=== PATIENT | female | born 1955 | race Caucasian/White ===

== ENCOUNTER 2017-10-04 13:20 | Emergency (ER) | payer BC, OTHER ==
[~2017-10-04] VITALS: Ht 165.1 cm; Wt 83.0 kg
[~2017-10-04 13:20] MED LIST: AMLODIPINE/BENA1 CAP PO; ASPIR-LOW81 MG PO; BIAXIN500 MG PO; BYSTOLIC5 MG PO; CALCIUM600 M1 PO; CITALOPRAM HYDR20 MG PO; CLARITIN10 MG PO; COLESTIPOL1 GM PO; D3PLUS1 CAP; D3PLUS1 CAP PO; DETROL LA4 MG PO; DIAZEPAM5 M1 PO; DULOXETINE60 MG PO; ESOMEPRAZOLE MA40 M1 PO; GARLIC OIL1000 MG PO; KEFLEX 500MG.500 MG PO; LOMOTIL 2.5MG.2.5 MG PO; LORTAB 5/500 501 TAB PO; LYRICA75 MG PO; MECLIZINE HYDRO25 M2 PO; MEDROL 4MG. DOSE4 MG PO; NEXIUM40 MG PO; ONE DAILY WOMEN1 TAB PO; PHENERGAN 25MG.25 M1 PO; POTASSIUM CHLO20 ME4 PO; PREMARIN0.625 MG PO; PREMPRO 0.625 M1 TA1 PO; ULTRAM50 MG PO; VITAMIN C250 M1 PO; VITAMIN E100 I2 PO; ZOFRAN ODT4 MG PO
--- OUTSIDE RECORDS SUMMARY | 2017-10-04 13:25 | External Medical Summary Rpt | CCD ---
Author Author , GRETCHEN GODINEZ Address Unknown Phone [email or web address] Purpose Continuity of Care Document - 03-19-2017 through 2016 Problems Code Diagnosis DOS Provider Status Z12.31 ENCOUNTER 03-19-2017 FOR SCREENING MAMMOGRAM FOR MALIGNANT NEOPLASM OF BREAST Z13.820 ENCOUNTER 03-19-2017 FOR SCREENING FOR OSTEOPOROSI S Results Labs Lab Lab Date Result Refere Interp Status Commen Order Detail nces retati t Range on Differential panel, method unspecified - (09-13-2017 18:10) Blood = 100 complet total 017 #CELLS ed cell 18:10 count Neutrop = 80 % 42-76 complet hil 017 ed count 18:10 Blood SL. SL. complet poikilo 017 L ed cytosis 18:10 detecti on by light Platele NORMAL complet t 017 NORMAL ed estimat 18:10 L e Monocyt = 1 % 2-9 complet e % 017 ed 18:10 LYMPH 6 % 10-50 complet 017 ed 18:10 Hypochr 1+ 1+ L complet omatic 017 ed red 18:10 blood cell detecti on Automat = 13 % 0-8 complet ed 017 ed blood 18:10 band neutrop hil percent a CBC w auto diff (09-13-2017 18:10) Blood = 6.7 4.8-10. complet leukocy 017 K/MM3 8 ed luis 18:10 count (number /volume ) Automat = 16.1 11.5-17 complet ed 017 % .5 ed erythro 18:10 cyte distrib ution width Red = 4.31 4.2-5.4 complet blood 017 M/mm3 ed cell 18:10 count Blood = 284 142-424 complet platele 017 K/mm3 ed t count 18:10 Automat = 7.1 7.4-10. complet ed 017 fl 4 ed blood 18:10 platele t mean volume yovani Adams % = 2.7 % 1.7-9.3 complet 017 ed 18:10 Absolut = 0.2 0.1-1.0 complet e 017 K/mm3 ed monocyt 18:10 e count Automat = 81.9 82.2-97 complet ed 017 fl .8 ed erythro 18:10 cyte mean corpusc ular v Automat = 31.3 31.8-35 complet ed 017 g/dl .4 ed erythro 18:10 cyte mean corpusc ular h Mean = 25.6 27-31.2 complet corpusc 017 pg ed ular 18:10 hemoglo bin (MCH) determ Lymphoc = 6.9 % 10-50.0 complet yte 017 ed count, 18:10 blood, automat ed Absolut = 0.5 0.7-4.5 complet e 017 K/mm3 ed lymphoc 18:10 yte count Blood = 11.0 12.2-16 complet hemoglo 017 g/dL .2 ed bin 18:10 measure ment (mass/v olum Blood = 35.3 37.0-47 complet hematoc 017 % .0 ed rit 18:10 (volume fractio n) Granulo = 90.0 37.0-80 complet cyte 017 % .0 ed percent 18:10 age Blood = 6.0 1.8-7.8 complet granulo 017 K/mm3 ed cytes 18:10 automat ed count (numb Automat = 0.4 % 0.1-12. complet ed 017 0 ed blood 18:10 eosinop hils/10 0 leukocy t Automat = 0.0 0.0-0.4 complet ed 017 K/mm3 ed blood 18:10 eosinop hil count Baso % = 0.0 % 0.1-2.0 complet 017 ed 18:10 Automat = 0.0 0-0.2 complet ed 017 K/MM3 ed blood 18:10 basophi l count (count/ vo Comprehensive metabolic panel (09-13-2017 18:10) Protein = 8.5 6.4-8.2 complet total 017 gm/dL ed ser/jose 18:10 s ALT = 68 12-78 complet (SGPT) 017 U/L ed ser/jose 18:10 s Serum = 139 15-37 complet or 017 U/L ed plasma 18:10 asparta te aminotr ansfera Serum = 135 136-145 complet sodium 017 mmoL/L ed measure 18:10 ment Serum = 2.9 3.5-5.1 complet potassi 017 mmoL/L ed um 18:10 measure ment Comment: CRITICAL RESULTS Comment: RESULTS CALLED TO: Tirso GERONIMO APRM 09/13/17 1839 ShadiDick Serum = 258 74-106 complet or 017 mg/dL ed plasma 18:10 glucose measure ment (mas Serum = 5.0 1.3-3.2 complet globuli 017 gm/dL ed n 18:10 measure ment (mass/v olume) Estimat = 57 59- complet ed 017 ML/MIN ed glomeru 18:10 lar filtrat ion rate (GF Comment: REFERENCE RANGE: >60 ML/MIN/1.73 SQUARE METERS Comment: If this patient is -Egyptian, then multiply the Comment: result by 1.210. Estimat = 79 50-200 complet ion of 017 ML/MIN ed creatin 18:10 ine renal clearan ce Serum = 1.0 0.55-1. complet or 017 mg/dL 02 ed plasma 18:10 creatin ine measure ment ( Carbon = 19 21.0-32 complet dioxide 017 mmoL/L .0 ed 18:10 measure ment Serum = 95 98-107 complet or 017 mmoL/L ed plasma 18:10 chlorid e measure ment (mo Serum 10-29-2 = 8.1 8.5-10. complet or 017 mg/dL 1 ed plasma 18:10 calcium measure ment (mas Serum = 9 7-18 complet or 017 mg/dL ed plasma 18:10 urea nitroge n measure men Serum = 0.6 0.2-1.0 complet or 017 mg/dL ed plasma 18:10 total bilirub in measure m Serum = 120 46-116 complet or 017 U/L ed plasma 18:10 alkalin e phospha tase yovani Serum = 3.5 3.4-5.0 complet or 017 gm/dL ed plasma 18:10 albumin measure ment (mas Serum = 0.7 1.1-1.8 complet or 017 ed plasma 18:10 albumin /globul in mass ra Differential panel, method unspecified - (09-13-2017 18:10) Hypochr 1+ complet omia 017 ed [Presen 18:10 ce] in Blood LYMPH 6 % 10% - Low complet 017 50% ed 18:10 Platele NORMAL complet ts 017 ed [Presen 18:10 ce] in Blood by Light microsc opy Poikilo SL. complet cytosis 017 ed 18:10 [Presen ce] in Blood by Light microsc opy
--- OUTSIDE RECORDS SUMMARY | 2017-10-04 13:25 | External Medical Summary Rpt | CCD ---
Author Author , GRETCHEN GODINEZ Address Unknown Phone Purpose Continuity of Care Document - 03-19-2017 [...] blood 18:10 platele t mean volume yovani [place] % = 2.7 % 1.7-9.3 complet 017 [...] SQUARE METERS Comment: If this patient is -South African, then multiply the Comment: result by 1.210. [...]
--- OUTSIDE RECORDS SUMMARY | 2017-10-04 13:26 | External Medical Summary Rpt | CCD ---
Demographics Preferred Language Occitan Marital Status Unknown Zoroastrianism Affiliation Unknown Race Unknown Ethnic Group Unknown Author Author , GRETCHEN GODINEZ Address Unknown Phone Immunization No patient found.
--- OUTSIDE RECORDS SUMMARY | 2017-10-04 13:26 | External Medical Summary Rpt ---
Author Author [employer], [employer] Organization [employer] Address Unknown Phone Unavailable Results CBC W Auto Differential panel in Blood Observa Value Referen Units Interpr Notes Date tion ce etation Range Basophils 0 - 0.2 K/MM3 Normal No Sep 13 informati 2017 6:10 [#/volume on in PM ] in source Blood by data Automated count Basophils 0.1 - 2.0 % Low No Sep 13 /100 informati 2017 6:10 leukocyte on in PM s in source Blood by data Automated count Eosinophi 0.0 - 0.4 K/mm3 Normal No Sep 13 ls informati 2017 6:10 [#/volume on in PM ] in source Blood by data Automated count Eosinophi 0.1 - % Normal No Sep 13 ls/100 12.0 informati 2017 6:10 leukocyte on in PM s in source Blood by data Automated count Granulocy 1.8 - 7.8 K/mm3 Normal No Sep 13 luis informati 2017 6:10 [#/volume on in PM ] in source Blood by data Automated count Granulocy 37.0 - % High No Sep 13 luis/100 80.0 informati 2017 6:10 leukocyte on in PM s in source Blood by data Automated count Hematocri 37.0 - % Low No Sep 13 t [Volume 47.0 informati 2017 6:10 on in PM Fraction] source of Blood data Hemoglobi 12.2 - g/dL Low No Sep 13 n 16.2 informati 2017 6:10 [Mass/vol on in PM ume] in source Blood data Lymphocyt 0.7 - 4.5 K/mm3 Low No Sep 13 es informati 2017 6:10 [#/volume on in PM ] in source Unspecifi data ed specimen by Automated count Lymphocyt 10 - 50.0 % Low No Sep 13 es informati 2017 6:10 [#/volume on in PM ] in source Unspecifi data ed specimen by Automated count Erythrocy 27 - 31.2 pg Low No Oct 29 te mean informati 2017 6:10 corpuscul on in PM ar source hemoglobi data n [Entitic mass] Erythrocy 31.8 - g/dl Low No Sep 13 te mean 35.4 informati 2017 6:10 corpuscul on in PM ar source hemoglobi data n concentra tion [Mass/vol ume] by Automated count Erythrocy 82.2 - fl Low No Sep 13 te mean 97.8 informati 2017 6:10 corpuscul on in PM ar volume source [Entitic data volume] by Automated count Monocytes 0.1 - 1.0 K/mm3 Normal No Sep 13 informati 2016 6:10 [#/volume on in PM ] in source Blood by data Automated count Monocytes 1.7 - 9.3 % Normal No Sep 13 informati 2017 6:10 leukocyte on in PM s in source Blood by data Automated count Platelet 7.4 - fl Low No Sep 13 mean 10.4 informati 2017 6:10 volume on in PM [Entitic source volume] data in Blood by Automated count Platelets 142 - 424 K/mm3 No No Sep 13 informati informati 2017 6:10 [#/volume on in on in PM ] in source source Blood data data Erythrocy 4.2 - 5.4 M/mm3 Normal No Sep 13 luis informati 2017 6:10 [#/volume on in PM ] in source Amniotic data fluid Erythrocy 11.5 - % Normal No Sep 13 te 17.5 informati 2017 6:10 distribut on in PM ion width source [Entitic data volume] by Automated count Leukocyte 4.8 - K/MM3 Normal No Sep 13 s 10.8 informati 2016 6:10 [#/volume on in PM ] in source Blood data Differential panel, method unspecified - Observa Value Referen Units Interpr Notes Date tion ce etation Range Neutrophi 0 - 8 % High No Sep 13 ls.band informati 2017 6:10 form/100 on in PM leukocyte source s in data Blood by Automated count Hypochr 1+ No No No No Sep 13 omia informa informa informa informa 2016 [Presen tion in tion in tion in tion in 6:10 PM ce] in source source source source Blood data data data data LYMPH 6 10 - 50 % Low No Sep 13 informa 2017 tion in 6:10 PM source data Monocytes 2 - 9 % Low No Oct 29 /100 informati 2017 6:10 leukocyte on in PM s in source Blood by data Automated count Platele NORMAL No No No No Sep 13 ts informa informa informa informa 2016 [Presen tion in tion in tion in tion in 6:10 PM ce] in source source source source Blood data data data data by Light microsc opy Poikilo SL. No No No No Sep 13 cytosis informa informa informa informa 2016 tion in tion in tion in tion in 6:10 PM [Presen source source source source ce] in data data data data Blood by Light microsc opy Neutrophi 42 - 76 % High No Sep 13 ls informati 2017 6:10 [#/volume on in PM ] in source Blood by data Automated count Cells No #CELLS No No Sep 13 Counted informati informati informati 2017 6:10 Total [#] on in on in on in PM in Blood source source source data data data Comprehensive metabolic 2000 panel in Serum or Plasma Observa Value Referen Units Interpr Notes Date tion ce etation Range Albumin/G 1.1 - 1.8 No Low No Sep 13 lobulin informati informati 2017 6:10 [Mass on in on in PM ratio] in source source Serum or data data Plasma Albumin 3.4 - 5.0 gm/dL Normal No Sep 13 [Mass/vol informati 2017 6:10 ume] in on in PM Serum or source Plasma data Alkaline 46 - 116 U/L High No Sep 13 phosphata informati 2017 6:10 se on in PM [Enzymati source c data activity/ volume] in Serum or Plasma Bilirubin 0.2 - 1.0 mg/dL Normal No Sep 13 .total informati 2017 6:10 [Mass/vol on in PM ume] in source Serum or data Plasma Urea 7 - 18 mg/dL Normal No Sep 13 nitrogen informati 2017 6:10 [Mass/vol on in PM ume] in source Serum or data Plasma Calcium 8.5 - mg/dL Low No Sep 13 [Mass/vol 10.1 informati 2017 6:10 ume] in on in PM Serum or source Plasma data Chloride 98 - 107 mmoL/L Low No Sep 13 [Moles/vo informati 2017 6:10 lume] in on in PM Serum or source Plasma data Carbon 21.0 - mmoL/L Low No Sep 13 dioxide, 32.0 informati 2017 6:10 total on in PM [Moles/vo source lume] in data Serum or Plasma Creatinin 0.55 - mg/dL Normal No Sep 13 e 1.02 informati 2017 6:10 [Mass/vol on in PM ume] in source Serum or data Plasma Creatinin 50 - 200 ML/MIN Normal No Sep 13 e renal informati 2017 6:10 clearance on in PM source predicted data by Cockcroft -Gault formula Estimated 59- ML/MIN Low REFERENCE Oct 29 RANGE: 2017 6:10 glomerula >60 PM r ML/MIN/1. filtratio 73 SQUARE n rate METERSIf (GF this patient is -A merican, then multiply theresult by 1.210. Globulin 1.3 - 3.2 gm/dL High No Sep 13 [Mass/vol informati 2016 6:10 ume] in on in PM Serum source data Glucose 74 - 106 mg/dL High No Sep 13 [Mass/vol informati 2016 6:10 ume] in on in PM Serum or source Plasma data Potassium 3.5 - 5.1 mmoL/L Low alert Sep 13 2017 6:10 [Moles/vo CRITICAL PM lume] in RESULTS Serum or Plasma RESU LTS CALLED TO: Tirso GERONIMO APRM 09/13/17 1839 Rabia Hsu Sodium 136 - 145 mmoL/L Low No Sep 13 [Moles/vo informati 2017 6:10 lume] in on in PM Serum or source Plasma data Aspartate 15 - 37 U/L High No Sep 13 informati 2017 6:10 aminotran on in PM sferase source [Enzymati data c activity/ volume] in Serum or Plasma Alanine 12 - 78 U/L Normal No Sep 13 aminotran informati 2017 6:10 sferase on in PM [Enzymati source c data activity/ volume] in Serum or Plasma Protein 6.4 - 8.2 gm/dL High No Sep 13 [Mass/vol informati 2017 6:10 ume] in on in PM Serum or source Plasma data
--- OUTSIDE RECORDS SUMMARY | 2017-10-04 13:26 | External Medical Summary Rpt | CCD ---
Demographics Preferred Language Spanish Marital Status Unknown Lutheran Affiliation Unknown Race Unknown Ethnic Group Unknown Author Author , GRETCHEN GODINEZ Address Unknown Phone Immunization No patient found.
--- NOTE | 2017-10-04 13:45 | Urgent Treatment Center Report ---
History of Present Issue Date/Time Seen by Provider 10/04/17 2357 Visit Reason Pt arrived:Walked Presenting Problem:PT C/O OF RT SHOULDER PAIN SINCE THIS MORNING Location if Accident: Onset of symptoms date/time:10/04/17 or onset unknown for: Have you (or family members/close friends) recently traveled outside the [place]? N If Yes, where/when: Have you had exposure to infectious disease within the past month? TB? Other? Specify: Patient state that she has had prior shoulder injury to right shoulder. State that she slept on it wrong last night and when she got up and moved her arm she felt something "pop" state that she has had previous rotator cuff injury to the shoulder also States that she feels like she is having muscle spasm like pain in her right shoulder ALLERGIES Coded Allergies: acetaminophen (From Percocet) (Mild, 04/03/16) ibuprofen (Mild, 04/03/16) oxycodone (From Percocet) (Mild, 04/03/16) Coconut (STOMACH CRAMPING 04/03/16) Home Medications Active Scripts Ondansetron (Zofran 4MG Odt) 4 MG PO Q6HP PRN NAUSEA AND VOMITING #10 ODT Prov: 09/13/17 Potassium Chloride 20 MEQ PO DAILY #5 TAB Prov: 09/13/17 Reported Medications Colestipol Hydrochloride (Colestipol 1GM) 10 MG PO BID Multivitamin And Minerals (One Daily Women's) 1 TAB PO DAILY Ascorbic Acid (Vitamin C) 250 MG PO QHS Vitamin E 100 IU PO QHS Garlic (Garlic Oil) 1,000 MG PO QHS CALCIUM CARBONATE (Calcium) 600 MG PO QHS B Cit/Cholecalciferol/Menate (D3plus) 1 CAP PO QHS Esomeprazole Magnesium (Nexium 40MG Cap) 40 MG PO DAILY Pregabalin (Lyrica 75MG) 75 MG PO BID AMLODIPINE BESYLATE/BENAZEPRIL (Amlodipine-Benazepril 5-10 MG) 1 CAP PO DAILY NEBIVOLOL HCL (Bystolic) 10 MG PO DAILY ESTROGEN,CON/M-PROGEST ACET (Prempro 0.625-5 MG Tablet) 1 TAB PO DAILY Citalopram Hydrobromide (Citalopram HBr) 20 MG PO DAILY #30 DULOXETINE HCL (Duloxetine) 60 MG PO DAILY #30 Aspirin (Aspir-Low) 81 MG PO DAILY History Medical History General CAD? No Angina: No NE: No Hypertension? Yes Hyperlipidemia? No CHF? No DVT? No PE? No COPD? No Asthma? No Anemia? No GERD? Yes Gastric ulcers? No GI Bleed? No Hernia? No Thyroid Problems? No Hypothyroidism? No CVA? No Seizures? No Diabetes? No Renal Insuffiency? No UTI? No Stones? No BPH? No GB Disease: No Nephritic Syndrome? No Asplenia? No Hepatitis? No Sickle Cell Disease? No Arthritis? Yes Migraines? Yes Cataracts? Yes Glaucoma? No MRSA? No HIV? No TB? No Anxiety? No Depression? No Cancer? No More? No Immunization HX DT/Tetanus 5-10 YRS Flu NEVER Pneumonia NEVER Surgical Hx Previous Surgery?Y LT CATARACT/YAG/LENS IM- PLANT D & C HYSTERECTOMY NASAL SURGERY X4 DEVIATED NASAL SEPTUM RT KNEE ARTHROSCOPY RT SHOULDER- LIGAMENTS RT. ROTATOR CUFF REPAIR Family History Family HX Diabetes Yes CAD No Hypertension Yes Hyperlipidemia Yes Cancer Yes TB No Social History Smoking Hx Smoker: Never Smoker Tobacco: No Alcohol Alcohol: No Review of Systems All Other Systems Reviewed and Negative Musculoskeletal other Physical Exam Vital Signs Vital Signs Date Time Temp Pulse Resp B/P Pulse O2 O2 Flow FiO2 Ox Delivery Rate 10/04 1328 97.9 92 18 151/76 99 General Appearance normal appearance, WD/WN, no apparent distress Respiratory Status Yes: trachea midline, chest symmetrical, non tender chest. No: respiratory distress. Cardiovascular normal exam, regular rate/rhythm, no peripheral edema Extremities Pain in right shoulder with movement, muscle spasm like pain in upper shoulder with tightness no deformity, good pulses, good cap refill Neurologic alert, normal exam, oriented x 3 Medical Decision Making LABS/Meds/Orders Pt receiving controlled substance in ED? No Results/Orders Current Medication Orders Sig/Nae Start time Last Medication Dose Route Stop Time Status Admin Cyclobenzaprine HCl 10 MG ONCE ONE 10/04 1345 DC 10/04 PO 10/04 1346 1345 Cyclobenzaprine HCl 0 .STK-MED ONE 10/04 1340 DC PO Orders Procedure Date/time Status UTC STABILIZE JOINT/AREA 10/04 1407 Active [id number] VIEWS 10/04 1337 Active XRAY/CT/US XRAY/CT/US XRAY shoulder XR interpretation by reviewed by me Xray Results no fracture seen Comment Refered to Orthopedics, will have Radiologist do official read and call patient if any discrepancies Progress [facility] Progress Notes Comment Patient state that pain is better after flexaril an spasm feels like it is relieving Departure Departure Time of Disposition 1408 Disposition DC Home or Self Care(routine) Clinical Impression Primary Impression: Shoulder pain Qualifiers: Chronicity: unspecified Laterality: right Qualified Code: M25.511 - Pain in right shoulder Condition STABLE Referrals FLORENTINO ODEN (Family): Tomorrow-Call Office Ez KEARNEY,Cole GERONIMO MD, KIM GALEAS Patient Instructions DI for Shoulder Pain Additional Instructions *RICE, Rest the extremity, Ice 15-20 minutes 3-4 times daily, Compress- wear the kevin wrap as discussed as much as possible to help reduce swelling and pain, Elevate the extremity when at rest *Kevin wrap is for support and help control swelling, use it except in the shower. Be sure that is not to tight but not to loose either *Elevate when resting *Ibuprofen 600-800mg every 6-8 hours as needed for pain an inflammation. If need something more can take Tylenol in between doses of Ibuprofen to help if you are allergic to Motrin take Tylenol Immediately follow up for new or worsening of symptoms, or no noticeable improvement over the next 3-5 days Call Orhtopedics as discussed in the office today for appointment Discharge Counseling Counseled pt/family regarding diagnosis, test results, medications/RX, home care, follow up needs Prescriptions Current Visit Scripts Cyclobenzaprine Hcl (Flexeril) 10 MG PO TID #15 TAB at 8968
[2017-10-04] MEDS ORDERED: FLEXERIL10 MG PO (14:11)
[2017-10-04 14:36] VITALS: BP 151/76
--- NOTE | 2017-10-04 18:04 | RADIOLOGY REPORT PS360 ---
[id number] VIEWS Ordering Physician: JANKI ORTIZ APRN Patient Age: 61 years: Female HISTORY: PAIN, POP SOUND HEARD, NO ACCIDENT, PREVIOUS INJURY Popping sound at right shoulder yesterday. Previous injury. Previous RCT surgery. And ligament tears. Right shoulder pain. TECHNIQUE: 3 views right shoulder. COMPARISON :Previous right shoulder from 05/15/2008. FINDINGS There is a small metallic anchor seen at the greater tuberosity from previous RCT repair. There is slight additional roughening at the superior base of the humeral head and the superior margin of the greater tuberosity. This may reflect sequela of impingement... No discrete osseous findings. No fracture. Glenoid intact. AC joint intact. glenohumeral joint appears overall satisfactory. Question humeral may be very slightly elevated relative to the glenoid today's study but this may merely be positional... Slight additional spurring is suggested at the tip of acromion.. If pain persist patient may need a follow-up MRI to further evaluate. The scapula and upper right ribs and right lung apex satisfactory. IMPRESSION No acute findings.. No fracture. No significant subluxation. Previous rotator cuff repair evident. Slight additional degenerative changes at base of humeral head, just beneath minimal spurring at tip of acromion.. Suspect reflecting sequela of ongoing impingement. If right shoulder pain symptoms persist may require further investigation
== END 2017-10-04 14:37 | disposition home or self-care (01) ==
LOC: UTC 13:20
DX: M25.511 Pain in right shoulder (principal); K21.9 Gastro-esophageal reflux disease without esophagitis; I10 Essential (primary) hypertension